=== PATIENT | male | born 1950 | race Caucasian/White ===

== ENCOUNTER → 2017-05-01 | Outpatient (CLI) | payer OTHER ==
[~2017-05-01] MED LIST: ASPEC81 PO; ATOR-22 PO; NCYSR50 PO; NIAC500T11 PO; PRLSR20 PO; WARF1TAB PO
[2017-05-01 09:52] LABS: ALT/SGPT 34 U/L (12-78); BLOOD UREA NITROGEN 22 mg/dl (7-18); CALCIUM 9.5 mg/dl (8.5-10.1); CARBON DIOXIDE 31 mmol/L (21-32); CHLORIDE 107 mmol/L (98-107); CREATININE 0.98 mg/dl (0.60-1.40); GLUCOSE 110 mg/dl (70-99); SODIUM 142 mmol/L (136-145)
[2017-05-01 10:02] LABS: ESTIMATED AVERAGE GLUCOSE 128 mg/dl; HA1C FLAG Normal (Normal)
[2017-05-01 10:03] LABS: ALB/GLOB RATIO 1.2 (0.9-2); ALKALINE PHOSPHATASE 63 U/L (45-117); AST/SGOT 19 U/L (15-37); CHOLESTEROL 194 mg/dl (0-200); CHOLESTEROL/HDL RATIO 2.2; HDL CHOLESTEROL 89 mg/dl; LDL CHOLESTEROL CALCULATED 90 mg/dl; TRIGLYCERIDES 76 mg/dl (0-150); VERY LOW DENSITY LIPOPROT CALC 15 mg/dl
== END | disposition home or self-care (01) ==
LOC: C.LAB1850 07:34
PROVIDERS: ATTEND Family Medicine
DX: R73.03 Prediabetes (principal); Z12.5 Encounter for screening for malignant neoplasm of prostate

== ENCOUNTER 2023-12-19 16:13 | Observation (INO) ==
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
[2023-12-19 17:29] LABS: Basophils # (auto) 0.05 K/uL (0.00-0.20); Basophils % (auto) 0.5 %; Eosinophils # (auto) 0.47 K/uL (0.00-0.50); Hematocrit (blood only) 46.2 % (42.0-52.0); Hemoglobin 15.5 g/dl (14.0-18.0); Immature Granulocytes # (auto) 0.03 K/uL (0.01-0.20); Immature Granulocytes % (auto) 0.3 %; Lymphocytes # (auto) 1.89 K/uL (1.20-3.40); Lymphocytes % (auto) 20.1 %; Mean Corpuscular Hemoglobin 29.9 pg (25.0-34.0); Mean Corpuscular Hgb Conc 33.5 g/dL (32.0-36.0); Mean Corpuscular Volume 89.2 fL (80.0-100.0); Mean Platelet Volume 11.6 fL (9.4-12.4); Monocytes # (auto) 0.52 K/uL (0.11-0.59); Monocytes % (auto) 5.5 %; Neutrophils # (auto) 6.46 K/uL (1.40-6.50); Neutrophils % (auto) 68.6 %; Platelet Count 235 K/uL (130-400); RDW Coefficient of Variation 12.9 % (11.5-14.5); RDW Standard Deviation 42.2 fL (36.4-46.3); Red Blood Count 5.18 M/uL (4.70-6.10); White Blood Count 9.42 K/ul (4.8-10.8)
[2023-12-19 17:49] LABS: Albumin Globulin Ratio 1.7 (0.9-2); Albumin Level 4.4 gm/dl (3.4-5.0); BUN Creatinine Ratio 24.5 (10-20); Bilirubin,Total 0.8 mg/dl (0.2-1.0); Calcium 9.9 mg/dl (8.6-10.3); Creatinine Clr Calc Pharmacy 59.9 ml/min; Est GFR (African American) 85.3 ml/min; Est GFR (Non-African American) 73.6 ml/min; Globulin 2.6 gm/dl (2.5-4.0); Potassium 3.9 mmol/L (3.5-5.1)
[2023-12-19 18:01] LABS: INR 1.1 (0.9-1.1); Partial Thromboplastin Ratio 1.1; Partial Thromboplastin Time 30 Seconds (21-31); Prothrombin Time 12.2 Seconds (9.0-12.0)
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
[2023-12-19 19:52] LABS: Estimated Average Glucose 131 mg/dl; Hemoglobin A1C 6.2 % (4.5-5.6)
[2023-12-19 20:14] LABS: Appearance Urine Clear (Clear); Bacteria Urine Automated Negative (Negative); Bilirubin Urine Negative (Negative); Blood Urine Negative (Negative); Color Urine Yellow; Epithelial Cell Urine Auto 0-5 /lpf (0-5); Glucose Urine UA Negative (Negative); Ketones Urine 1+ (Negative); Leukocyte Esterase Urine Trace (Negative); Nitrite Urine Negative (Negative); Protein Urine Negative (Negative); RBC Urine Automated 0-4 /hpf (0-4); Specific Gravity Urine 1.024 (1.000-1.030); Urobilinogen Urine Negative (Negative)
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
--- NOTE | 2023-12-19 20:28 | Procedure Note ---
Procedure Note Date of Service December 19, 2023 Note Procedure: 14 Vietnamese pigtail catheter placement, left Indication: Traumatic pneumothorax Consent risk and benefits were discussed with the patient. She agreed. Written consent was verified prior to commencement of the procedure. Drawing In Machine Tender Helper Dr. Benson Estimated blood loss: Less than 5 mL Anesthesia: 5 mL 1% lidocaine without epinephrine locally. Procedure: I discussed risk and benefits of chest tube placement with the patient to include surveillance and monitoring. Patient is in agreement to proceed with tube placement for aspiration The patient was placed in a semiupright seated position. The infraclavicular space in the midclavicular line on the left was cleansed using chlorhexidine and a sterile field established. An area approximately 2 cm below the clavicle in the midclavicular line was anesthetized with lidocaine. The muscle and deeper soft tissues were anesthetized using a finder needle. With the finder needle I was able to to aspirate air. The finder needle was then withdrawn. A small skin pia was made with a scalpel. An 18-gauge needle was then advanced on a similar line until I was able to aspirate air. The syringe was withdrawn leaving the needle in place. A wire was passed through the needle and then the needle was withdrawn leaving the wire in the pleural space. A 14 Vietnamese dilator was then passed over the wire to dilate the skin and soft tissues. This passed with ease. The dilator was removed leaving the wire in place. A 14 Vietnamese pigtail catheter was then loaded on a straightening catheter and advanced over the wire into the pleural space. The stiffening catheter and wire were removed leaving the pigtail catheter in place. A three-way stopcock was attached. The tube was attached to suction with a 1+ airleak on the Pleur-evac system which resolved fairly quickly. A skater catheter fixation system was attached to the chest wall and the catheter secured. Catheter was attached to suction at 20 cm of water. Post procedure chest x-ray is pending. The patient tolerated the procedure well. Coding CPT Codes Pulmonary/Thoracic - Pulmonary and Thoracic: 98951 Tube thoracostomy ([id number]) [facility] [place] ([place]arges) Pulmonary/Thoracic Procedure 1: Pulmonary and Thoracic: 97040 Tube thoracostomy
[2023-12-19] MEDS: LANTUS PER UNIT CHARGE SQ SCH (20:36)
[2023-12-19] MEDS: ACETAMINOPHEN 325 MG TAB PO PRN (20:39)
--- NOTE | 2023-12-19 22:08 | XRay Report ---
SINGLE VIEW CHEST CLINICAL HISTORY: Chest tube placement. FINDINGS: 2 AP, portable, upright chest radiographs compare to study dated 12/05/2023 and correlated wi th chest CT dated 12/19/2023. The heart is enlarged. The pulmonary vasculature is noncongested. A left -sided chest tube has been placed. There is trace residual left apical pneumothorax. This has decreas ed in size from today's CT scan. There is a left pleural effusion and left basilar consolidation. Sae cified granulomas are again noted. The right lung is clear. The skeletal structures are osteopenic. T here are chronic/healed left-sided rib fractures. IMPRESSION: 1. A left-sided chest tube has been placed. There is only trace residual left apical pneumothorax. 2. Left pleural effusion and left basilar consolidation. ACT 112: Negative or not required by law. Electronically signed by: Jairo Mariee M.D. 12/19/2023 10:05 PM
--- NOTE | 2023-12-20 07:46 | XRay Report ---
XR chest 1V portable CLINICAL HISTORY: Pneumothorax. COMPARISON STUDY: Chest CT and chest radiograph December 19, 2023. FINDINGS: Left pleural catheter remains in place. No residual pneumothorax is identified. A small lef t pleural effusion is unchanged. Multiple left-sided rib fractures are better depicted on prior CT. N o consolidation is identified suggest pneumonia. There is no evidence for pulmonary edema. Cardiomedi astinal silhouette is unremarkable. IMPRESSION: 1. Left pleural catheter in place. No pneumothorax. 2. No change in a small left pleural effusion. ACT 112: Negative or not required by law. Electronically signed by: Abran Hanna M.D. 12/20/2023 7:44 AM
[2023-12-20] MEDS: ATORVASTATIN 40 MG TAB PO SCH (08:05)
[2023-12-20] MEDS: SERTRALINE HCL 50 MG TABLET PO SCH (08:06)
[2023-12-20] MEDS: PANTOprazole 40 MG TAB PO SCH (08:06)
[2023-12-20] MEDS: LOSARTAN POTASSIUM 50 MG TAB PO SCH (08:06)
--- NOTE | 2023-12-20 08:32 | Procedure Note ---
Procedure Note Date of Service December 20, 2023 Note Procedure: Removal of 8 Kiswahili pigtail catheter Clinical Operations Leader Dr. Benson Indication resolution of pneumothorax Consent risks and benefits were discussed with the patient. He agreed to proceed. Anesthesia none Patient was placed in a semiupright position. The skater securing dressing was removed. Catheter was freed up. Under full expiration, the catheter was pulled and a Vaseline impregnated gauze applied over the skin incision. Tegaderm was applied. Patient tolerated the procedure well without complication. Coding CPT Codes Pulmonary/Thoracic - Pulmonary and Thoracic: 50490 Remove lung catheter ([id number]) [facility] [place] [facility] [place] Codes (Charges) Pulmonary/Thoracic Procedure 1: Pulmonary and Thoracic: 66401 Remove lung catheter
--- NOTE | 2023-12-20 08:36 | Pulmonology Progress Note ---
Date of Service December 20, 2023 Assessment & Plan (1) Closed traumatic fracture of ribs of left side with pneumothorax: (2) Pleural effusion: Plan Impression: 73-year-old male without significant prior pulmonary history presents now with delayed presentation of traumatic pneumothorax. There was concern about potential early tension physiology based on the CT scan and the patient underwent placement of a 8 Bhutanese pigtail catheter. Chest x-ray this morning demonstrates resolution of the pneumothorax. There is a small effusion noted. He remains asymptomatic. Recommendations: 1. Traumatic pneumothorax: Resolved after pigtail catheter placement. Catheter will be removed this morning. The patient can be dismissed from the hospital. 2. Rib fractures: These occurred almost a month ago. Continue supportive care with pain management. 3. Patient does have a small left-sided pleural effusion which may be hemothorax related to his rib fractures or potentially sympathetic effusion. Recommend he follow-up with a chest x-ray with his primary care provider in 1 to 2 weeks. If he has persistent issues, he is established with Dr. Live in the outpatinet setting. Patient can be dismissed from the hospital. He should return to the emergency room for increasing chest pain or shortness of breath. Follow-up as noted above. Feel free to contact us with questions or concerns Admission and Anticipated Discharge Date Admission Date: December 19, 2023 Subjective Patient seen and examined. EMR reviewed. The patient is done well overnight. He did have some initial chest pain which has resolved. His x-ray this morning demonstrates resolution of the pneumothorax with a small pleural effusion on that side. He is asymptomatic. Review of Systems Review of Systems: All systems reviewed & are unremarkable except as noted in Subjective Physical Exam Constitutional: WD/WN, vitals as above Respiratory: normal respiratory effort, lungs clear to auscultation Cardiovascular: RRR, no murmur, no edema Musculoskeletal: Extremities: extremities normal to inspection Skin: no rashes, warm and dry Results & Data Results & Data Vital Signs (Past 12 Hours) Vital Signs Temp Pulse Resp BP Pulse Ox O2 Del Method 12/20/23 08:13 36.8 C 67 18 125/76 97 Room Air 12/20/23 03:18 36.7 C 74 18 112/67 96 Room Air 12/19/23 22:22 36.8 C 18 136/77 96 Room Air Critical Care Results & Data Vital Signs (Past 12 Hours) Vital Signs Temp Pulse Resp BP Pulse Ox O2 Del Method 12/20/23 08:13 36.8 C 67 18 125/76 97 Room Air 12/20/23 03:18 36.7 C 74 18 112/67 96 Room Air 12/19/23 22:22 36.8 C 18 136/77 96 Room Air Lab & Micro Results (Past 24 Hours) RBC 5.18 M/uL (4.70-6.10) 12/19/23 WBC 9.42 K/ul (4.8-10.8) 12/19/23 Hgb 15.5 g/dl (14.0-18.0) 12/19/23 Hct 46.2 % (42.0-52.0) 12/19/23 MCV 89.2 fL (80.0-100.0) 12/19/23 MCH 29.9 pg (25.0-34.0) 12/19/23 MCHC 33.5 g/dL (32.0-36.0) 12/19/23 RDW Standard Deviation 42.2 fL (36.4-46.3) 12/19/23 RDW Coefficient of Variation 12.9 % (11.5-14.5) 12/19/23 Plt Count 235 K/uL (130-400) 12/19/23 MPV 11.6 fL (9.4-12.4) 12/19/23 Neutrophils (%) (Auto) 68.6 % 12/19/23 Lymphocytes (%) (Auto) 20.1 % 12/19/23 Monocytes # (Auto) 0.52 K/uL (0.11-0.59) 12/19/23 Eosinophils # (Auto) 0.47 K/uL (0.00-0.50) 12/19/23 Immature Granulocyte % (Auto) 0.3 % 12/19/23 Neutrophils # (Auto) 6.46 K/uL (1.40-6.50) 12/19/23 Lymphocytes # (Auto) 1.89 K/uL (1.20-3.40) 12/19/23 Monocytes # (Auto) 0.52 K/uL (0.11-0.59) 12/19/23 Eosinophils # (Auto) 0.47 K/uL (0.00-0.50) 12/19/23 Basophils # (Auto) 0.05 K/uL (0.00-0.20) 12/19/23 Immature Granulocyte # (Auto) 0.03 K/uL (0.01-0.20) 4 Na 142 mmol/L (136-145) 12/19/23 K 3.9 mmol/L (3.5-5.1) 12/19/23 Cl 106 mmol/L (98-107) 12/19/23 CO2 25 mmol/L (21-32) 12/19/23 Anion Gap 11 (3-11) 12/19/23 BUN 25 mg/dl (6-23) H 12/19/23 Creatinine 1.02 mg/dl (0.6-1.4) 12/19/23 Estimated GFR ( Amer) 85.3 ml/min 12/19/23 Estimated GFR (Non-Af Amer) 73.6 ml/min 12/19/23 BUN/Creatinine Ratio 24.5 (10-20) H 12/19/23 Glu 100 mg/dl (70-99(Fasting)) H 12/19/23 Ca 9.9 mg/dl (8.6-10.3) 12/19/23 Total Bilirubin 0.8 mg/dl (0.2-1.0) 12/19/23 AST 19 U/L (13-39) 12/19/23 ALT 18 U/L (7-52) 12/19/23 Alkaline Phosphatase 90 U/L (34-104) 12/19/23 TP 7.0 gm/dl (6.0-8.3) 12/19/23 Albumin 4.4 gm/dl (3.4-5.0) 12/19/23 Globulin 2.6 gm/dl (2.5-4.0) 12/19/23 Albumin/Globulin Ratio 1.7 (0.9-2) 12/19/23 Calcium Level 9.9 mg/dl (8.6-10.3) 12/19/23 17:05 Prothromb Time International Ratio 1.1 (0.9-1.1) 12/19/23 17:0 5 Diagnostic Findings (Past 24 Hours) Chest X-Ray 12/19/23 20:12 SINGLE VIEW CHEST CLINICAL HISTORY: Chest tube placement. FINDINGS: 2 AP, portable, upright chest radiographs compare to study dated 12/05/2023 and correlated with chest CT dated 12/19/2023. The heart is enlarged. The pulmonary vasculature is noncongested. A left-sided chest tube has been placed. There is trace residual left apical pneumothorax. This has decreased in size from today's CT scan. There is a left pleural effusion and left basilar consolidation. Calcified granulomas are again noted. The right lung is clear. The skeletal structures are osteopenic. There are chronic/healed left-sided rib fractures. IMPRESSION: 1. A left-sided chest tube has been placed. There is only trace residual left apical pneumothorax. 2. Left pleural effusion and left basilar consolidation. ACT 112: Negative or not required by law. Electronically signed by: Jairo Mariee M.D. 12/19/2023 10:05 PM Chest X-Ray 12/20/23 07:00 XR chest 1V portable CLINICAL HISTORY: Pneumothorax. COMPARISON STUDY: Chest CT and chest radiograph December 19, 2023. FINDINGS: Left pleural catheter remains in place. No residual pneumothorax is identified. A small left pleural effusion is unchanged. Multiple left-sided rib fractures are better depicted on prior CT. No consolidation is identified suggest pneumonia. There is no evidence for pulmonary edema. Cardiomediastinal silhouette is unremarkable. IMPRESSION: 1. Left pleural catheter in place. No pneumothorax. 2. No change in a small left pleural effusion. ACT 112: Negative or not required by law. Electronically signed by: Abran Hanna M.D. 12/20/2023 7:44 AM I & O Totals 24 Hours 12/19/23 12/20/23 12/21/23 06:59 06:59 06:59 Intake Total 800 / 800 Balance 800 / 800 Cumulative 12/19/23 16:13 thru 12/20/23 05:51 Intake Total 800 Balance 800 RT Ventilator Mngmt (Last Documented) Ventilator Ordered Settings Respiratory Rate 18 12/20/23 08:13 Ventilator - PT Measurements Respiratory Rate 18 PG Care Time/CCT Total # of Minutes Spent Total Time Spent with Patient: Total time spent is greater than 50% in coordination of care (as documented) at patient's floor/unit and/or counseling patient: Coding Level of Care Code 85635 SUB INP/OBS CARE 2/35MIN Diagnoses Closed traumatic fracture of ribs of left side with pneumothorax S22.42XA; S27.0XXA Pleural effusion J90
--- NOTE | 2023-12-20 08:50 | Electrocardiogram Report ---
Test Reason : Blood Pressure : / mmHG Vent. Rate : 090 BPM Atrial Rate : 090 BPM P-R Int : 164 ms QRS Dur : 084 ms QT Int : 352 ms P-R-T Axes : 060 061 062 degrees QTc Int : 430 ms Normal sinus rhythm T-wave inversion in Anteroseptal leads , consider ischemia Minor ST depression in Inferior leads Abnormal ECG When compared with ECG of 04-DEC-2021 09:11, QRS voltage has decreased T-wave inversion in Anterior leads now present Nonspecific ST abnormality Inferior leads now present Confirmed by Terrance Lea ([id number]) on 12/20/2023 8:49:56 AM Referred By: REFERRED SELF Confirmed By:Terrance Lea
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
[2023-12-20] MEDS ORDERED: NIACIN EXTENDED REL 500 MG TABCR PO SCH (16:30)
== END 2023-12-20 09:22 | disposition home or self-care (01) ==
LOC: 2E 16:13 → ED 16:13 → SUATTDRO 18:00 → 2E 19:24
DX: S22.42XA Multiple fractures of ribs, left side, initial encounter for closed fracture; Z79.4 Long term (current) use of insulin; J45.909 Unspecified asthma, uncomplicated; J93.9 Pneumothorax, unspecified; V29.99XA Rider (driver) (passenger) of other motorcycle injured in unspecified traffic accident, initial encounter; X58.XXXA Exposure to other specified factors, initial encounter; J90 Pleural effusion, not elsewhere classified; R06.02 Shortness of breath; Z79.899 Other long term (current) drug therapy; R91.1 Solitary pulmonary nodule